=== PATIENT | male | born 1940 | race Caucasian/White ===

== ENCOUNTER 2018-02-13 10:47 | Inpatient (IN) | payer OTHER ==
[~2018-02-13] VITALS: Ht 170.1 cm
[2018-02-13] VITALS (7 sets, daily range): BP systolic 148–173; BP diastolic 63–83
--- NOTE | ~2018-02-13 | O ---
[place], [place] OPERATIVE NOTE NAME: MATY VILLEGAS UNIT #: [id number] ROOM: 403 DOCTOR: DEDE PALOMINO MD BIRTHDATE: [birth year] DOS: 02/15/2018 GASTROENDOSCOPIC REPORT HISTORY OF PRESENT ILLNESS: The patient is 78 years old who has presented with GI bleed, undergoing investigation. PAST MEDICAL HISTORY: Coronary artery disease, prostate carcinoma, hyperlipidemia, and hypertension. PAST SURGICAL HISTORY: Coronary artery bypass, 3 vessels and stenting prostate seed implant. PROCEDURE: Today's procedure part of investigation is panendoscopy and colonoscopy. PREMEDICATION: Propofol. SCOPE: Olympus forward-viewing gastroscope Q10 video. REPORT: After putting the patient in left lateral position and application of lubricant to the scope, the scope was entered, the scope was introduced. Thereafter, under direct visualization, advanced through the length of esophagus without difficulty into gastric pouch. Mild gastritis seen. Antral biopsy obtained. Duodenal bulb, second and third part within normal limits. The patient extubated, tolerated procedure well. IMPRESSION: Gastritis of mild degree, status post biopsy. PLAN AND DISCUSSION: We are going to continue with Protonix and I am going to proceed with colonoscopy. GASTROENDOSCOPIC REPORT INDICATIONS: The patient has presented with GI bleed, undergoing investigation. PROCEDURE: Today's procedure part of investigation is colonoscopy. PREMEDICATION: Propofol. SCOPE: Olympus folding colonoscope 10L video. REPORT: After putting the patient in left lateral position and application of lubricant to the scope, the scope was introduced. Thereafter, under direct visualization, advanced through the length of colon without difficulty. Evidence of diverticulosis of sigmoid colon was appreciated. Base of the cecum explored, appendiceal orifice identified, ileocecal valve was defined. Sessile polypoid lesion from base of cecum with piecemeal polypectomy removed. Two other polypoid lesions sessile again in character from sigmoid colon with piecemeal polypectomy removed. Scope was withdrawn back to the rectum area, [place], [place] OPERATIVE NOTE NAME: MATY VILLEGAS UNIT #: [id number] ROOM: 403 DOCTOR: DEDE PALOMINO MD BIRTHDATE: [birth year] mild evidence of proctitis, possibly secondary to seed implant was identified. No active bleeding was seen. Air was suctioned out. The patient was extubated, tolerated procedure well. IMPRESSION: 1. Diverticulosis, sessile colonic polyp, cecum. 2. Sessile polypoid lesion in sigmoid colon. 3. Mild proctitis. PLAN AND DISCUSSION: Anucort-HC suppository 1 at bedtime due for next 3 days and subsequently Preparation-H suppository withheld p.r.n. The patient to be assured that there is no active concern for his rectal bleeding, which is going to be superficial. DEDE PALOMINO MD CM:OPRECORD:OPERATIVE NOTE [id number] DEDE PALOMINO MD 02/15/18 1142 interface
--- NOTE | ~2018-02-13 | CON ---
[place], [place] REPORT OF CONSULTATION NAME: MATY VILLEGAS UNIT #: [id number] ROOM: [facility] DOCTOR: DEDE PALOMINO MD BIRTHDATE: [birth year] DOS: 02/13/2018 GASTROENDOSCOPIC REPORT HISTORY OF PRESENT ILLNESS: An 78-year-old patient who presented with chief complaint of rectal bleeding several times since yesterday and this was not associated with abdominal cramp. He has been on aspirin, multivitamin, vitamin E and aspirin. He had a panel of blood work done. His lactic acid was 0.8. His CBC differential white blood cell was 5.6, H and H of 12 and 37, mixed macro/microcytic. His INR was 1.0. Comprehensive metabolic panel, electrolytes were balanced. Liver function test normal. His BUN and creatinine 22 and 1.7. His GFR 46. His blood type was A negative. PAST MEDICAL HISTORY: Associated with hypertension, coronary artery disease, hyperlipidemia, prostate carcinoma. PAST SURGICAL HISTORY: Status post coronary artery bypass graft x 2 settings of 4-vessel bypass and 3-vessel bypass, prostate seed implant, and hemorrhoidectomy. FAMILY HISTORY: Noncontributory. SOCIAL HISTORY: Nonsmoker, nonalcohol consumer. REVIEW OF SYSTEMS: HEENT: Denies double vision, blurred vision. RESPIRATORY: Denies acute shortness of breath. CARDIOVASCULAR: Denies acute chest pain. DIGESTIVE SYSTEM: Blood per stool since yesterday evening. PHYSICAL EXAMINATION: VITAL SIGNS: Stable. HEENT: Head normocephalic, nontraumatic. Mouth and buccal mucosa benign. NECK: Supple, no thyromegaly, no cervical lymphadenopathy. CHEST: Symmetric anatomy, equal expansion. No wheeze, no rhonchi. HEART: Normal sinus rhythm, no gallop, no murmur. ABDOMEN: Soft. No hepato-organomegaly. Bowel sounds present. No pulsatile mass. No rebound tenderness. EXTREMITIES: No cyanosis, no pedal edema. NEUROLOGIC: Alert, oriented to time, place, person. 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 PLAN AND DISCUSSION: We are going to hold aspirin. We are going to hold the vitamin E and multivitamins. We are going to follow up on H and H. We are going to organize a colonoscopy after a day of a colonic prep and clinical reassessment. OTHER ADJUNCTIVE DIAGNOSES: Coronary artery disease, hypercholesterolemia, [place], [place] REPORT OF CONSULTATION NAME: MATY VILLEGAS UNIT #: [id number] ROOM: [facility] DOCTOR: DEDE PALOMINO MD BIRTHDATE: [birth year] prostate carcinoma status post CABG, appendectomy and hemorrhoidectomy. Thank you very much indeed. DEDE PALOMINO MD CM:CONSTR:REPORT OF CONSULTATION 1313 02/13/18 1749 interface
[~2018-02-13 10:47] MED LIST: FLOMAX0.4 MG PO; HYDROCODONE BIT1 T11 PO; MOTRIN800 MG PO; SIMVASTATIN10 MG PO
[2018-02-13 11:56] LABS: BASO # 0.1 10*3/uL (0.0-0.1); BASO % 0.9 % (0.0-1.0); EOS # 0.2 10*3/uL (0.0-0.4); EOS % 3.3 % (1.0-4.0); HEMATOCRIT 37.7 % (42.0-52.0); HEMOGLOBIN 12.4 g/dl (14.0-18.0); LYMPH # 1.3 10*3/uL (1.3-4.4); LYMPH % 22.8 % (27.0-41.0); MEAN CELL VOLUME 95.2 fl (80.0-94.0); MEAN CORPUSCULAR HGB 31.3 pg (27.0-31.0); MEAN CORPUSCULAR HGB CONC 32.9 g/dl (33.0-37.0); MEAN PLATELET VOLUME 9.3 fl (9.6-12.3); MONO # 0.4 10*3/uL (0.1-1.0); MONO % 6.1 % (3.0-9.0); NEUT # 3.8 10*3/uL (2.3-7.9); NEUT % 66.6 % (47.0-73.0); PLATELET COUNT AUTOMATED 152 10*3/uL (130-400); RED BLOOD COUNT 3.96 10*6/uL (4.50-5.90); RED CELL DISTRI WIDTH 13.7 % (0-14.5); WHITE BLOOD COUNT 5.8 10*3/uL (4.8-10.8)
[2018-02-13 12:07] LABS: ACT PARTIAL THROMBO TIME 23.6 SECONDS (20.8-31.5)
[2018-02-13 12:11] LABS: ALBUMIN 3.7 gm/dl (3.1-4.5); CREATININE 1.72 mg/dL (0.70-1.30); TOTAL PROTEIN 7.4 gm/dL (6.4-8.2)
[2018-02-13] MEDS ORDERED: MELOXICAM15 MG PO (14:32)
[2018-02-13] MEDS ORDERED: ASPIRIN81 M1 PO (14:36)
[2018-02-13 18:04] LABS: HEMATOCRIT 29.7 % (42.0-52.0); HEMOGLOBIN 9.9 g/dl (14.0-18.0)
[2018-02-14] VITALS: BP 150/69
[2018-02-14 00:45] LABS: HEMATOCRIT 27.5 % (42.0-52.0); HEMOGLOBIN 8.8 g/dl (14.0-18.0)
[2018-02-14 02:53] LABS: HEMATOCRIT 26.8 % (42.0-52.0); HEMOGLOBIN 8.8 g/dl (14.0-18.0)
[2018-02-14 04:00] VITALS: BP 141/66
[2018-02-14 06:11] LABS: ALBUMIN 2.8 gm/dl (3.1-4.5); ALKALINE PHOSPHATASE 42 U/L (45-117); BUN 17 mg/dl (7-24); CHLORIDE 108 mmol/L (98-107); CHOLESTEROL 104 mg/dL (<200); HDL CHOLESTEROL 45 mg/dl (40-60); LDL CHOLESTEROL 42 mg/dL (9-159); PHOSPHOROUS 2.4 mg/dL (2.5-4.9); POTASSIUM 3.8 mmol/L (3.5-5.1); SGOT/AST 16 IU/L (3-35); SGPT/ALT 13 U/L (12-78); SODIUM 139 mmol/L (136-145); TOTAL PROTEIN 5.4 gm/dL (6.4-8.2); TRIGLYCERIDES 85 mg/dl (<150); VLDL CHOLESTEROL 17 mg/dL (6-40)
[2018-02-14 06:34] LABS: BASO % 0.6 % (0.0-1.0); EOS # 0.3 10*3/uL (0.0-0.4); EOS % 4.9 % (1.0-4.0); HEMATOCRIT 27.9 % (42.0-52.0); LYMPH # 1.5 10*3/uL (1.3-4.4); LYMPH % 28.2 % (27.0-41.0); MEAN CELL VOLUME 95.9 fl (80.0-94.0); MEAN CORPUSCULAR HGB 30.9 pg (27.0-31.0); MEAN CORPUSCULAR HGB CONC 32.3 g/dl (33.0-37.0); MEAN PLATELET VOLUME 10.1 fl (9.6-12.3); MONO # 0.4 10*3/uL (0.1-1.0); MONO % 8.6 % (3.0-9.0); NEUT % 57.5 % (47.0-73.0); PLATELET COUNT AUTOMATED 133 10*3/uL (130-400); RED BLOOD COUNT 2.91 10*6/uL (4.50-5.90); RED CELL DISTRI WIDTH 13.7 % (0-14.5); WHITE BLOOD COUNT 5.1 10*3/uL (4.8-10.8)
[2018-02-14 07:10] LABS: ACT PARTIAL THROMBO TIME 24.8 SECONDS (20.8-31.5)
[2018-02-14 08:00] VITALS: BP 125/56
[2018-02-14 08:14] LABS: VITAMIN D, 25-HYDROXY 70.2 ng/mL (30-100)
[2018-02-14 16:00] VITALS: BP 134/54
[2018-02-14 20:00] VITALS: BP 144/71
[2018-02-15] VITALS (8 sets, daily range): BP systolic 121–166; BP diastolic 65–80
[2018-02-15 06:38] LABS: BASO % 0.6 % (0.0-1.0); EOS # 0.2 10*3/uL (0.0-0.4); EOS % 4.3 % (1.0-4.0); LYMPH # 1.4 10*3/uL (1.3-4.4); LYMPH % 28.3 % (27.0-41.0); MEAN CELL VOLUME 95.9 fl (80.0-94.0); MEAN CORPUSCULAR HGB 30.8 pg (27.0-31.0); MEAN CORPUSCULAR HGB CONC 32.1 g/dl (33.0-37.0); MEAN PLATELET VOLUME 9.5 fl (9.6-12.3); MONO # 0.4 10*3/uL (0.1-1.0); MONO % 8.5 % (3.0-9.0); NEUT # 2.9 10*3/uL (2.3-7.9); NEUT % 57.9 % (47.0-73.0); PLATELET COUNT AUTOMATED 136 10*3/uL (130-400); RED BLOOD COUNT 2.92 10*6/uL (4.50-5.90); RED CELL DISTRI WIDTH 13.5 % (0-14.5); WHITE BLOOD COUNT 4.9 10*3/uL (4.8-10.8)
[2018-02-15 06:57] LABS: BUN 9 mg/dl (7-24); CHLORIDE 110 mmol/L (98-107); POTASSIUM 3.4 mmol/L (3.5-5.1); SODIUM 140 mmol/L (136-145)
[2018-02-15] MEDS ORDERED: PREPARATION H1 EAC1 R (11:29)
[2018-02-15] MEDS ORDERED: Anusol Hc,Anuco25 MG R (13:10)
[2018-02-15] MEDS ORDERED: PROTONIX40 MG PO (13:10)
== END 2018-02-15 15:20 | disposition home or self-care (01) | DRG 377 ==
LOC: ED 10:47 → ICCU 11:30 → EDHOLD 11:30 → 4E 12:11 → ICCU 13:39 → 4E 02-15 10:21
PROVIDERS: Emergency Medicine; Family Medicine; Student in an Organized Health Care Education/Training Program
PROC: 0DB68ZX Excision of Stomach, Via Natural or Artificial Opening Endoscopic, Diagnostic (ICD-10-PCS; principal; 2018-02-15)
PROC: 0DBN8ZZ Excision of Sigmoid Colon, Via Natural or Artificial Opening Endoscopic (ICD-10-PCS; principal; 2018-02-15)
PROC: 0DBH8ZZ Excision of Cecum, Via Natural or Artificial Opening Endoscopic (ICD-10-PCS; principal; 2018-02-15)
DX: K29.71 Gastritis, unspecified, with bleeding (principal); N17.0 Acute kidney failure with tubular necrosis; E44.0 Moderate protein-calorie malnutrition; E83.51 Hypocalcemia; D62 Acute posthemorrhagic anemia; K57.31 Diverticulosis of large intestine without perforation or abscess with bleeding; Z68.44 Body mass index [BMI] 60.0-69.9, adult; B35.3 Tinea pedis; D53.9 Nutritional anemia, unspecified; R00.1 Bradycardia, unspecified; E78.5 Hyperlipidemia, unspecified; N40.0 Benign prostatic hyperplasia without lower urinary tract symptoms; R73.9 Hyperglycemia, unspecified; E87.6 Hypokalemia; K62.89 Other specified diseases of anus and rectum; I71.9 Aortic aneurysm of unspecified site, without rupture; Z95.1 Presence of aortocoronary bypass graft; Z85.46 Personal history of malignant neoplasm of prostate; Z90.49 Acquired absence of other specified parts of digestive tract

== ENCOUNTER 2018-03-12 04:28 | Emergency (ER) | payer OTHER ==
[~2018-03-12] VITALS: Wt 77.1 kg
[~2018-03-12 04:28] MED LIST changes: +ASPIRIN81 M1 PO; +Anusol Hc,Anuco25 MG R; +MELOXICAM15 MG PO; +PREPARATION H1 EAC1 R; +PROTONIX40 MG PO
[2018-03-12 05:05] LABS: BASO % 0.8 % (0.0-1.0); EOS # 0.2 10*3/uL (0.0-0.4); EOS % 4.4 % (1.0-4.0); HEMATOCRIT 33.6 % (42.0-52.0); HEMOGLOBIN 10.8 g/dl (14.0-18.0); LYMPH # 1.1 10*3/uL (1.3-4.4); MEAN CELL VOLUME 97.1 fl (80.0-94.0); MEAN CORPUSCULAR HGB 31.2 pg (27.0-31.0); MEAN CORPUSCULAR HGB CONC 32.1 g/dl (33.0-37.0); MEAN PLATELET VOLUME 9.2 fl (9.6-12.3); MONO # 0.5 10*3/uL (0.1-1.0); MONO % 10.3 % (3.0-9.0); NEUT # 2.9 10*3/uL (2.3-7.9); NEUT % 61.1 % (47.0-73.0); PLATELET COUNT AUTOMATED 167 10*3/uL (130-400); RED BLOOD COUNT 3.46 10*6/uL (4.50-5.90); RED CELL DISTRI WIDTH 13.9 % (0-14.5); WHITE BLOOD COUNT 4.8 10*3/uL (4.8-10.8)
[2018-03-12 05:08] LABS: BILIRUBIN NEGATIVE (NEGATIVE); BLOOD 3+ (NEGATIVE); CLARITY CLOUDY (CLEAR); COLOR RED (YELLOW); GLUCOSE TRACE (NEGATIVE); KETONE TRACE (NEGATIVE); LEUKO ESTERASE 2+ (NEGATIVE); NITRITE POSITIVE (NEGATIVE)
[2018-03-12 05:20] LABS: ALBUMIN 3.5 gm/dl (3.1-4.5); CREATININE 1.61 mg/dL (0.70-1.30); POTASSIUM 3.9 mmol/L (3.5-5.1); TOTAL PROTEIN 7.1 gm/dL (6.4-8.2)
[2018-03-12 05:23] LABS: RBC TNTC rbc/hpf (0-2); WBC 41-50 wbc/hpf (0-5)
[2018-03-12 05:25] LABS: BACTERIA 1+
[2018-03-12] MEDS ORDERED: SEPTDS PO (05:33)
[2018-03-12] MEDS ORDERED: PYRIDIUM100 MG PO (05:33)
== END 2018-03-12 05:40 | disposition home or self-care (01) ==
LOC: ED 04:28
PROVIDERS: Student in an Organized Health Care Education/Training Program
DX: R33.9 Retention of urine, unspecified (principal); N39.0 Urinary tract infection, site not specified; R31.9 Hematuria, unspecified; E78.5 Hyperlipidemia, unspecified; Z90.49 Acquired absence of other specified parts of digestive tract; Z98.890 Other specified postprocedural states; Z85.46 Personal history of malignant neoplasm of prostate; Z79.899 Other long term (current) drug therapy; Z79.82 Long term (current) use of aspirin

== ENCOUNTER 2020-07-01 18:22 | Emergency (ER) | payer OTHER ==
[~2020-07-01] VITALS: Ht 172.7 cm; Wt 59.0 kg
[~2020-07-01 18:22] MED LIST changes: +PYRIDIUM100 MG PO; +SEPTDS PO
== END 2020-07-01 21:15 | disposition home or self-care (01) ==
LOC: ED 18:22
DX: K91.840 Postprocedural hemorrhage of a digestive system organ or structure following a digestive system procedure (principal); R03.0 Elevated blood-pressure reading, without diagnosis of hypertension; E78.5 Hyperlipidemia, unspecified; Z79.899 Other long term (current) drug therapy; Z79.82 Long term (current) use of aspirin

== ENCOUNTER 2023-04-18 11:04 | Emergency (ER) | payer MEDICARE ==
[~2023-04-18] VITALS: Wt 53.5 kg
[2023-04-18 13:07] LABS: BASO % 0.7 % (0.0-1.0); EOS # 0.3 10*3/uL (0.0-0.4); EOS % 4.7 % (1.0-4.0); HEMATOCRIT 35.6 % (42.0-52.0); LYMPH % 18.6 % (27.0-41.0); MEAN CORPUSCULAR HGB 31.6 pg (27.0-31.0); MEAN CORPUSCULAR HGB CONC 32.6 g/dl (33.0-37.0); MEAN PLATELET VOLUME 9.3 fl (9.6-12.3); MONO # 0.5 10*3/uL (0.1-1.0); MONO % 8.5 % (3.0-9.0); NEUT # 3.7 10*3/uL (2.3-7.9); NEUT % 67.1 % (47.0-73.0); PLATELET COUNT AUTOMATED 139 10*3/uL (130-400); RED BLOOD COUNT 3.67 10*6/uL (4.50-5.90); RED CELL DISTRI WIDTH 13.9 % (0-14.5); WHITE BLOOD COUNT 5.5 10*3/uL (4.8-10.8)
[2023-04-18 13:20] LABS: ACT PARTIAL THROMBO TIME 26.7 SECONDS (20.0-32.1)
[2023-04-18 13:28] LABS: ALKALINE PHOSPHATASE 55 U/L (46-116); BUN 25 mg/dl (9-23); CHLORIDE 106 mmol/L (98-107); LIPASE 36 U/L (12-53); POTASSIUM 4.4 mmol/L (3.4-5.1); SGPT/ALT 11 U/L (10-49); TOTAL PROTEIN 6.8 gm/dL (6.0-8.0)
== END 2023-04-18 14:52 | disposition home or self-care (01) ==
LOC: ED 11:04
PROVIDERS: Physician Assistant Medical
DX: F91.9 Conduct disorder, unspecified (principal); I25.10 Atherosclerotic heart disease of native coronary artery without angina pectoris; E78.00 Pure hypercholesterolemia, unspecified; Z90.49 Acquired absence of other specified parts of digestive tract; Z98.890 Other specified postprocedural states

== ENCOUNTER 2023-05-01 14:16 | Emergency (ER) | payer MEDICARE ==
[~2023-05-01] VITALS: Wt 53.5 kg
[2023-05-01] MEDS ORDERED: CEPHALEXIN500 M1 PO (16:06)
== END 2023-05-01 17:30 | disposition home or self-care (01) ==
LOC: ED 14:16
DX: S61.215A Laceration without foreign body of left ring finger without damage to nail, initial encounter (principal); S61.217A Laceration without foreign body of left little finger without damage to nail, initial encounter; Z79.899 Other long term (current) drug therapy; Z79.82 Long term (current) use of aspirin; Z90.49 Acquired absence of other specified parts of digestive tract; Z98.890 Other specified postprocedural states; W29.3XXA Contact with powered garden and outdoor hand tools and machinery, initial encounter; Y93.89 Activity, other specified; Y92.89 Other specified places as the place of occurrence of the external cause; Y99.8 Other external cause status